=== PATIENT | female | born 1990 | race Caucasian/White ===

== ENCOUNTER 2023-10-29 05:43 | Inpatient (IN) ==
--- NOTE | 2023-10-21 12:36 | Anesthesiology Consultation ---
Date of Service October 21, 2023 Assessment & Plan (1) Encounter for pre-operative examination: Infectious disease screening: Per assessment on 10/21/23: No known infectious disease contacts or current infectious disease symptoms. No noted recent Covid positive test result. Chart Review Chart Review: data entry technician initiated History Surgery Operation Date: 10/29/23 07:30 Proposed Procedures p Section (Delivery of Baby Through Abdominal Incision) - Janet Church MD Height/Weight Height: 5 ft 4 in Weight: 124.284 kg Allergies Allergy/AdvReac Type Severity Reaction Status Date / Time morphine Allergy Unknown Verified 10/21/23 12:00 Medications Home Medications Medication Instructions Recorded Confirmed Last Taken vit no.[id number] 1 tab PO QAM 04/01/23 10/21/23 Unknown [Classic ] docusate sodium 50 mg capsule 50 mg PO QAM 10/21/23 10/21/23 Unknown (Stool Softener) Past Medical History Medical History History of colon polyps Varicella vaccination Past Family History Family History Father Cancer, Onset Age: 14 Denies family history of Ovarian cancer Breast cancer Colorectal cancer Past Surgical History Surgical History History of ankle surgery Left History of placement of ear tubes History of tonsillectomy S/P section x2 S/P colonoscopy with polypectomy Social History Smoking Status: Former smoker Do You Dip or Chew Tobacco: No Smoking End Date: > 10 years ago Hx Alcohol Use: No Hx Substance Use: No substance use type: does not use
[2023-10-29] MEDS ORDERED: SODIUM CHLORIDE 0.9% 250 ML IV PRN (05:50)
[2023-10-29 06:20] LABS: Basophils # (auto) 0.01 K/uL (0.00-0.20); Basophils % (auto) 0.2 %; Eosinophils # (auto) 0.03 K/uL (0.00-0.50); Eosinophils % (auto) 0.5 %; Hematocrit (blood only) 34.5 % (37.0-47.0); Hemoglobin 11.7 g/dl (12.0-16.0); Immature Granulocytes # (auto) 0.05 K/uL (0.01-0.20); Immature Granulocytes % (auto) 0.9 %; Lymphocytes # (auto) 0.95 K/uL (1.20-3.40); Lymphocytes % (auto) 16.5 %; Mean Corpuscular Hemoglobin 32.5 pg (25.0-34.0); Mean Corpuscular Hgb Conc 33.9 g/dL (32.0-36.0); Mean Corpuscular Volume 95.8 fL (80.0-100.0); Mean Platelet Volume 10.6 fL (9.4-12.4); Monocytes # (auto) 0.66 K/uL (0.11-0.59); Monocytes % (auto) 11.5 %; Neutrophils # (auto) 4.05 K/uL (1.40-6.50); Neutrophils % (auto) 70.4 %; Platelet Count 188 K/uL (130-400); RDW Coefficient of Variation 15.1 % (11.5-14.5); RDW Standard Deviation 52.8 fL (36.4-46.3); White Blood Count 5.75 K/ul (4.8-10.8)
[2023-10-29] MEDS: LACTATED RINGER'S 1,000 ML IV SCH (06:32)
[2023-10-29] MEDS ORDERED: fentaNYL citrate PF 100 MCG/2 ML VIAL ONE (07:01)
[2023-10-29] MEDS ORDERED: HYDROmorphone INJ 2 MG/ML SYR/VIAL ONE (07:02)
[2023-10-29] MEDS ORDERED: ePHEDrine sulfate 50 MG/5 ML SYR ONE (07:07)
[2023-10-29] MEDS ORDERED: ONDANSETRON INJ 2 MG/ML 2 ML VIAL ONE (07:07)
[2023-10-29] MEDS ORDERED: KETOROLAC 30 MG/ML VIAL ONE (07:07)
[2023-10-29] MEDS ORDERED: PHENYLEPHRINE HCL 10 MG/ML VIAL ONE (07:07)
[2023-10-29] MEDS ORDERED: OXYTOCIN 10 UNITS/ML VIAL ONE (07:07)
--- NOTE | 2023-10-29 07:17 | History & Physical Bridge Note ---
Date of Service October 29, 2023 History & Physical Bridge Note I have examined the patient, reviewed the History & Physical and in the interval since the performance of the History & Physical I have noted the following changes of clinical significance: no changes noted
[2023-10-29] MEDS: CITRIC ACID/SODIUM CITRATE 15 ML UDC PO STA (07:21)
[2023-10-29] MEDS ORDERED: DROPERIDOL 5 MG/2 ML VIAL IV PRN (07:51)
[2023-10-29] MEDS ORDERED: NALOXONE HCL 1 MG in SODIUM CHLORIDE 0.9% 1,000 ML IV PRN (07:51)
[2023-10-29] MEDS ORDERED: NALOXONE HCL 0.4 MG/1 ML VIAL/CARP IV PRN (07:51)
[2023-10-29] MEDS ORDERED: NALOXONE HCL 0.08 MG in SYRINGE 1.8 ML IV PRN (07:51)
[2023-10-29] MEDS ORDERED: ACETAMINOPHEN 1,000 MG/100 ML VIAL IV PRN (07:51)
[2023-10-29] MEDS ORDERED: LACTATED RINGER'S 500 ML IV PRN (07:51)
[2023-10-29] MEDS ORDERED: diphenhydrAMINE 50 MG/ML VIAL IV PRN (07:51)
[2023-10-29] MEDS ORDERED: ONDANSETRON INJ 2 MG/ML 2 ML VIAL IV PRN (07:51)
[2023-10-29] MEDS ORDERED: ePHEDrine sulfate 50 MG/ML AMP IV PRN (07:51)
[2023-10-29] MEDS ORDERED: PROMETHAZINE HCL 6.25 MG in SODIUM CHLORIDE 0.9% 50 ML IV PRN (07:51)
[2023-10-29] MEDS ORDERED: HYDROmorphone INJ 0.5 MG/0.5 ML SYR IV PRN (07:51)
[2023-10-29] MEDS ORDERED: NALBUPHINE HCL 5 MG in SYRINGE 0 ML IV PRN (07:51)
[2023-10-29] MEDS ORDERED: SODIUM CHLORIDE 0.9% 1,000 ML IV SCH (08:00)
[2023-10-29] MEDS ORDERED: NO NARCOTICS OR SEDATIVES SCH (08:00)
[2023-10-29] MEDS ORDERED: ARISTA ABSORBABLE HEMOSTAT 3GM TOP ONE (08:11)
--- NOTE | 2023-10-29 08:47 | Operative Report ---
PG Post Operative Report Pre & Post Diagnosis Operation Date: 10/29/23 07:30 Pre-Op Diagnosis: 1. Previous c/section 2. desires repeat 3. Term IUP Post-Op Diagnosis: Same I identified the patient and participated in the time-out.: Yes Procedure Operation Date: 10/29/23 07:30 Actual Procedures Repeat Low Transverse Section Surgeon Janet Church MD Machine Brusher Dora Estimated Blood Loss 500 Findings Consistent with Post-Op Diagnosis Specimens Placenta Anesthesia Type Spinal Complications none Disposition Accompanied Patient To Recovery: Yes Description of Procedure The patient was placed operating table in the supine position with a leftward tilt. She was prepped and draped in standard sterile fashion. A Pannus-lifting system was utilized prior to prep. The anesthetic was tested and found to be adequate. A time-out was held, identifying correct patient, procedure, positioning and preoperative antibiotics. There were no concerns. A Pfannenstiel skin incision was made with a knife and taken down to the underlying layer of fascia. The fascia was incised in the midline with the knife and taken out laterally with scissors. The superior edge of the fascial incision was grasped, elevated and dissected off the underlying rectus both superiorly and inferiorly. The muscles were bluntly in the midline. The peritoneum was entered bluntly. The incision was then stretched. The Rosalio retractor was placed. The vesicouterine peritoneum was identified, entered with scissors and taken out laterally with scissors. The bladder flap was created digitally. A hysterotomy incision was created transversely in the lower uterine segment, final entry being accomplished in a blunt manner with the locomotive crane operator helper's fingers. Clear amniotic fluid was encountered. The locomotive crane operator helper's hand was used to elevate the head to the hysterotomy. A MityVac was applied, and the head was delivered using mild fundal pressure, and the shoulders and body followed without difficulty. The cord was clamped and cut and the infant was then handed off to the awaiting retail mortgage banker. The placenta was Manually extracted. The uterus was cleared of all clot and debris with moistened laparotomy sponges. The hysterotomy incision was repaired in two layers, the first in a running locked layer, the second in an imbricating layer. Kush was applied over the hysterotomy and bladder flap. The gutters were cleared of clot and debris. A final inspection of the hysterotomy revealed good hemostasis. Rosalio was removed. The rectus muscles were allowed to reapproximate naturally. The fascia was then reapproximated with 1 Vicryl in a running nonlocked manner. The fascia was examined and found to be free of defect following closure. The subcutaneous tissue was copiously irrigated and reapproximated with 0-chromic, then the skin edges were closed with 4-0 monocryl in a subcuticular fashion. A AHSAN dressing was applied. The carrillo was found to be draining clear yellow urine at completion of the procedure. I attest to the content of the Intraoperative Record and any orders documented therein. Any exceptions are noted below. I attest to the content of the Intraoperative Record and any orders documented therein. Any exceptions are noted below. OB Procedure Charges [id number]
[2023-10-29] MEDS ORDERED: DIPHTHER/TETAN/PERTUS Vaccine (Tdap, Adol/Adult) 0.5mL IM ONE (09:06)
[2023-10-29] MEDS ORDERED: HYDROCORTISONE ACETATE 25 MG SUPP PR PRN (09:06)
[2023-10-29] MEDS ORDERED: LACTATED RINGER'S 1,000 ML IV SCH (09:06)
[2023-10-29] MEDS ORDERED: BENZOCAINE 20% SPRY 85 APPLN/85 GM CAN EXT PRN (09:06)
[2023-10-29] MEDS: miSOPROStoL 200 MCG TAB PR ONE (09:32)
--- NOTE | 2023-10-29 09:38 | Communication Note ---
Date of Service: October 29, 2023 I was called to bedside for concern of excess lochia and clots. Chux with blood and clots up to coin-size, weighed for 167gm. Bimanual showed cervix closed (would not have been able to place a Ni device) and fundus feels firm at U, though palpation is admittedly somewhat difficult due to pendulous pannus, which also makes location of umbilicus somewhat nonstandard. No significant lochia at the time of my arrival, however this is likely because the uterus responded well to nursing measures already being implemented including fundal massage. Patient notes she had "a lot of blood loss" after her second delivery, however did not require transfusion, and doesn't recall any other specific treatments being required. Cytotec 1000mcg NE administered by this MD to prevent further excess bleeding.
[2023-10-29] MEDS: OXYTOCIN 30 UNITS/LR 1,003 ML IV SCH (09:41)
[2023-10-29] MEDS ORDERED: OXYTOCIN 30 UNITS/LR 1,003 ML IV SCH (10:30)
[2023-10-29] MEDS: KETOROLAC 30 MG/ML VIAL IV PRN (11:15)
[2023-10-29] MEDS ORDERED: TRANEXAMIC ACID / 0.7% NACL 1000MG/100ML BAG IV ONE (12:30)
[2023-10-29] MEDS ORDERED: TRANEXAMIC ACID 100 MG/ML 10 ML VIAL IV ONE (12:34)
[2023-10-29] MEDS: TRANEXAMIC ACID / 0.7% NACL 1,000 MG/100 ML BAG IV SCH (12:49)
--- NOTE | 2023-10-29 12:55 | Anesthesiology Progress Note ---
Date of Service October 29, 2023 Anesthesia Post Procedure Vital Signs Vital Signs: Temp Pulse Resp BP Pulse Ox 10/29/23 11:12 84 96 10/29/23 11:07 93 H 122/63 94 10/29/23 11:02 93 H 94 10/29/23 11:00 18 10/29/23 10:57 96 H 116/58 L 94 10/29/23 10:52 98 H 94 10/29/23 10:47 94 H 116/58 L 95 10/29/23 10:42 94 H 94 10/29/23 10:38 97 H 116/58 L 10/29/23 10:37 99 H 95 10/29/23 10:32 87 96 10/29/23 10:30 18 10/29/23 10:30 18 10/29/23 10:27 97 H 97 10/29/23 10:22 106 H 96 10/29/23 10:18 88 116/59 L 10/29/23 10:17 91 H 94 10/29/23 10:12 96 H 94 10/29/23 10:07 97 H 129/60 93 10/29/23 10:02 98 H 94 10/29/23 10:00 18 10/29/23 10:00 98.2 F 18 10/29/23 09:57 97 H 94 10/29/23 09:52 94 H 94 10/29/23 09:50 18 10/29/23 09:47 91 H 119/55 L 95 10/29/23 09:42 88 94 10/29/23 09:40 18 10/29/23 09:37 96 10/29/23 09:37 91 H 10/29/23 09:37 91 H 113/64 10/29/23 09:32 85 95 10/29/23 09:30 98.2 F 18 10/29/23 09:27 87 112/58 L 94 10/29/23 09:22 92 H 95 10/29/23 09:20 18 10/29/23 09:17 82 115/68 96 10/29/23 09:12 90 96 10/29/23 09:10 98.2 F 18 10/29/23 09:07 86 112/66 95 10/29/23 09:02 81 96 10/29/23 09:00 98.2 F 18 10/29/23 09:00 90 94 10/29/23 08:57 86 107/61 99 10/29/23 08:52 100 10/29/23 08:52 91 H 10/29/23 08:52 99 H 80 L 10/29/23 08:47 89 99 10/29/23 08:46 90 115/67 10/29/23 07:15 18 10/29/23 07:15 98.2 F 10/29/23 07:10 98.2 F 10/29/23 07:08 87 138/71 10/29/23 06:00 98.2 F 10/29/23 05:56 109 H 133/63 Pain Intensity Lower Abdomen: Pain Intensity: 2 Transfer of Care Handoff Completed per policy Notes Mental Status: alert / awake / arousable and participated in evaluation Patient Amnestic to Procedure: Yes Nausea / Vomiting: adequately controlled Pain: adequately controlled Airway Patency, RR, SpO2: stable & adequate BP & HR: stable & adequate Hydration State: stable & adequate Neuraxial Anesthesia: was administered and sensory block is resolving Anesthetic Complications: no major complications apparent and Pt Satisfied with anesthetic care
--- NOTE | 2023-10-29 13:11 | Communication Note ---
Date of Service: October 29, 2023 Patient visited on . Was in process of getting 2nd IV site placed. Nursing notes another 200cc out in the past 40min, and additional recs therefore made for TXA IV x1, methergine po x 24 hours, stat H&H now, double infusion rate of 2nd pit bag. Fundus has been firm throughout, and on every exam the cervix is closed. Most of her lochia has been obtained during fundal massage, very little if any coming out spontaneously; I suspect tight cervix is causing lochia to "back up" in her uterus and come out all at once when significant pressure is applied. Would still be unable to place a Ni given her cervical exam, which would be ideal if I could do so but it's not physically possible. Patient believes she recalls a similar situation being voiced after her prior delivery, with cervix very tightly closed and limiting the management options. Patient and FOB note she feels good and is less worried about the bleeding than her care team seems to be, as she has typically heavy menses not unlike the "gushes" being weighed here, and feels this bleeding is still well below the level she experienced after her last delivery. She remains normotensive, pulse 84, and having no presyncope or weakness. Nevertheless she is accepting and grateful for the preemptive and ongoing measures being taken, and is informed of our plans, and has had all questions answered.
[2023-10-29 13:15] LABS: Hemoglobin 11.3 g/dl (12.0-16.0)
[2023-10-29] MEDS: METHYLERGONOVINE MALEATE 0.2 MG TAB PO SCH (13:39)
[2023-10-29] MEDS: SIMETHICONE 80 MG CHEW PO SCH (13:39)
[2023-10-29] MEDS: DOCUSATE SODIUM 100 MG CAP PO SCH (21:42)
[2023-10-30] MEDS ORDERED: diphenhydrAMINE Capsule 25 MG CAP PO PRN (01:52)
[2023-10-30] MEDS ORDERED: PROMETHAZINE HCL 25 MG in SODIUM CHLORIDE 0.9% 50 ML IV PRN (01:52)
[2023-10-30] MEDS ORDERED: ONDANSETRON INJ 2 MG/ML 2 ML VIAL IV PRN (01:52)
[2023-10-30] MEDS ORDERED: diphenhydrAMINE 50 MG/ML VIAL IV PRN (01:52)
[2023-10-30] MEDS ORDERED: KETOROLAC 30 MG/ML VIAL IV PRN (01:52)
--- NOTE | 2023-10-30 05:52 | Obstetrical Progress Note ---
Date of Service October 30, 2023 Assessment & Plan (1) Obesity affecting : (2) Encounter for assessment: Plan 32 yo post day 1 Vital signs reviewed Hgb 11.3 yesterday. Pending this morning. Rubella immune Pain well controlled Continue ambulation Encourage Admission and Anticipated Discharge Date Admission Date: October 29, 2023 Supervising Physician Co-Signing Physician Notes Resident Physician Supervision Note: I interviewed and examined the patient. Discussed with Dr. Calhoun and agree with findings and plan as documented in the note. Any exceptions or clarifications are listed here: [ ] Documented By: Janet Church MD, FACOG Subjective 32 yo day 1 s/p C/S. Had PPH, treated TXA IV x1, methergine po x 24 hours The patient is ambulating. She has not voided stool but has passed gas. She is on a regular diet. She admits to moderate lochia and rates her pain at a 4/10. She is not taking any ibuprofen or oxycodone. She is breast feeding. Review of Systems Review of Systems: Resting comfortably this AM in NAD. Negative ROS. She denies fevers, chills, SOB, cough, chest pain, heart palpitations, breast pain, discharge, UTI symptoms, or headaches. Physical Exam Physical Exam: General: patient resting comfortably, NAD, non-toxic in appearance, AA&O x 4, answers questions appropriately. Skin: warm, dry, intact Heart: regular RR no m/r/g Lungs: CTAB no rales/rhonchi/wheezes Abd: soft non-distended with normal active bowel sounds, AHSAN dressing is clean with no bleeding or purulent drainage. Ext: no edema Neuro: nonfocal, patient AA&O x 4, speech intact, no facial droop, moving all extremities on command. Results & Data Vital Signs (Past 12 Hours) Vital Signs Temp Pulse Resp BP Pulse Ox O2 Del Method 10/30/23 03:00 36.8 C 97 H 16 121/75 100 Room Air 10/30/23 01:10 16 98 10/30/23 00:15 16 97 10/29/23 23:14 16 100 10/29/23 23:14 36.6 C 98 H 16 127/85 100 Room Air 10/29/23 22:19 16 96 10/29/23 21:18 16 97 10/29/23 20:25 16 98 10/29/23 19:30 36.8 C 92 H 16 119/77 98 Room Air 10/29/23 19:30 16 98 Resident Activity Tracking Resident Involvement: Resident Care Provided Care Provided: OB Delivery (1) Obesity affecting Obesity type affecting : unspecified obesity Trimester: unspecified trimester Qualified Code(s): O99.210 - Obesity complicating , unspecified trimester (2) Encounter for assessment visit type: exam and care immediately after delivery Qualified Code(s): Z39.0 - Encounter for care and examination of mother immediately after delivery
[2023-10-30 07:11] LABS: Basophils # (auto) 0.01 K/uL (0.00-0.20); Basophils % (auto) 0.1 %; Eosinophils # (auto) 0.04 K/uL (0.00-0.50); Eosinophils % (auto) 0.5 %; Hematocrit (blood only) 27.8 % (37.0-47.0); Hemoglobin 9.6 g/dl (12.0-16.0); Immature Granulocytes # (auto) 0.05 K/uL (0.01-0.20); Immature Granulocytes % (auto) 0.6 %; Lymphocytes # (auto) 0.61 K/uL (1.20-3.40); Lymphocytes % (auto) 7.6 %; Mean Corpuscular Hemoglobin 32.8 pg (25.0-34.0); Mean Corpuscular Hgb Conc 34.5 g/dL (32.0-36.0); Mean Corpuscular Volume 94.9 fL (80.0-100.0); Mean Platelet Volume 10.5 fL (9.4-12.4); Monocytes # (auto) 0.71 K/uL (0.11-0.59); Monocytes % (auto) 8.8 %; Neutrophils # (auto) 6.63 K/uL (1.40-6.50); Neutrophils % (auto) 82.4 %; Platelet Count 145 K/uL (130-400); RDW Standard Deviation 52.2 fL (36.4-46.3); Red Blood Count 2.93 M/uL (4.20-5.40); White Blood Count 8.05 K/ul (4.8-10.8)
[2023-10-30] MEDS: IBUPROFEN 600 MG TAB PO PRN (08:54)
[2023-10-30] MEDS: oxyCODONE/ACETAMINOPHEN 5mg/325mg TAB PO PRN (08:54)
[2023-10-30] MEDS: FERROUS SULFATE 325 MG TAB PO SCH (08:54)
[2023-10-30] MEDS: PRENATAL VITAMIN 1 TAB PO SCH (08:54)
[2023-10-30] MEDS: DC INTRASPINAL MORPHINE ONE (09:33)
[2023-10-30] MEDS: bisacodyL 5 MG TABEC PO SCH (20:34)
--- NOTE | 2023-10-31 06:44 | Obstetrical Progress Note ---
Date of Service October 31, 2023 Assessment & Plan (1) Obesity affecting : (2) Encounter for assessment: Plan 32 yo post day 1 Vital signs reviewed Hgb 11.3 yesterday. Pending this morning. Rubella immune Pain well controlled Continue ambulation Encourage Admission and Anticipated Discharge Date Admission Date: October 29, 2023 Supervising Physician Co-Signing Physician Notes Resident Physician Supervision Note: I was present with Dr. Diez during the history and exam. I discussed the case with the resident and agree with the findings and plan as documented in the note. Any exceptions or clarifications are listed here: stable doing well. eating, voiding, ambulating. pain well controlled. wants to go home. +flatus. no bleeding issues. abd soft obest nt, ff 2 down nt, dressing intact. ext nt calves. pod #2 s/p c/s, enc to use scd while in bed. she plans to go home. labs pending this am, had pph but no evidence of ongoing losses. f/u 10d due to ahsan and then 6wk pp. instructions reviewed. rh pos, ri, . checked on papdmp and no issues. Documented By: Priya Weber MD, FACOG Subjective 32 yo day 2 s/p C/S. Had PPH, treated cytotec, TXA IV x1, methergine po x 24 hours Ambulation: ambulating normally Voiding: no voiding problems Passing Gas:: Yes Diet Tolerance:: regular diet Lochia:: Small Feeding Type:: bottle feeding Current Pain Level: controlled with pain meds Resting comfortably this AM in NAD. Denies COLBERT, CP, SOB, N/V/D, LE pain/swelling. Review of Systems Review of Systems: All systems reviewed & are unremarkable except as noted in HPI & below Physical Exam Physical Exam: General: patient resting comfortably, NAD, non-toxic in appearance, AA&O x 4, answers questions appropriately. Heart: +S1/S2, regular, no m/r/g Lungs: equal air entry bilaterally, no rales/rhonchi/wheezes Abd: +BS, soft, NT/ND, uterine fundus firm at umbilicus, AHSAN dressing intact, no bleeding, no signs of infection Ext: warm, no clubbing/cyanosis or edema, Chen's neg. Results & Data Vital Signs (Past 12 Hours) Vital Signs Temp Pulse Resp BP Pulse Ox O2 Del Method 10/31/23 00:25 36.5 C 87 16 123/74 98 Room Air 10/30/23 20:40 Room Air 10/30/23 20:40 36.6 C 104 H 17 121/78 98 Room Air Resident Activity Tracking Resident Involvement: Resident Care Provided Care Provided: OB Delivery (1) Obesity affecting Obesity type affecting : unspecified obesity Trimester: unspecified trimester Qualified Code(s): O99.210 - Obesity complicating , unspecified trimester (2) Encounter for assessment visit type: exam and care immediately after delivery Qualified Code(s): Z39.0 - Encounter for care and examination of mother immediately after delivery
[2023-10-31] MEDS ORDERED: bisacodyL 10 MG SUPP PR PRN (08:29)
[2023-10-31 09:11] LABS: Hematocrit (blood only) 29.6 % (37.0-47.0); Hemoglobin 9.8 g/dl (12.0-16.0)
--- NOTE | 2023-11-03 15:45 | Discharge Summary ---
Date of Service November 03, 2023 Discharge Data Consultations 10/29/23 05:47 Consult Anesthesiology Stat Procedures Performed Operation Date: 10/29/23 07:30 Actual Procedures p Section (Delivery of Baby Through Abdominal Incision) with the of a live female child at 0759. - Janet Church MD Hospital Course (1) Obesity affecting : (2) Encounter for assessment: Plan 32 yo post day 1 Vital signs reviewed Hgb 11.3 yesterday. Pending this morning. Rubella immune Pain well controlled Continue ambulation Encourage Supervising Physician Co-Signing Physician Notes Resident Physician Supervision Note: I was present with Dr. Diez during the history and exam. I discussed the case with the resident and agree with the findings and plan as documented in the note. Any exceptions or clarifications are listed here: stable doing well. eating, voiding, ambulating. pain well controlled. wants to go home. +flatus. no bleeding issues. abd soft obest nt, ff 2 down nt, dressing intact. ext nt calves. pod #2 s/p c/s, enc to use scd while in bed. she plans to go home. labs pending this am, had pph but no evidence of ongoing losses. f/u 10d due to shayy and then 6wk pp. instructions reviewed. rh pos, ri, . checked on papdmp and no issues. Documented By: Priya Weber MD, FACOG Coding Level of Care Code None Diagnoses Obesity affecting , antepartum, unspecified obesity type O99.210 Trimester: unspecified trimester Obesity type affecting : unspecified obesity Encounter for care or examination of mother immediately after delivery Z39.0 visit type: exam and care immediately after delivery
== END 2023-10-31 14:20 | disposition home or self-care (01) | DRG 788 ==
LOC: 4S1 05:43 → EDSTATUS 07:30 → 4E2 11:48